=== PATIENT | female | born 1965 | race Caucasian/White ===

== ENCOUNTER 2020-03-09 18:56 | Observation (INO) | payer BC ==
[~2020-03-09] VITALS: Ht 157.5 cm; Wt 70.0 kg
[2020-03-09] MEDS ORDERED: ONDANSETRON 2MG/ML, 2ML ONE (19:47)
[2020-03-09] MEDS ORDERED: MORPHINE SULFATE 4 MG/ML, 1ML ONE ×2 (19:48→20:40)
[2020-03-09] MEDS ORDERED: CEFOTETAN PMX 1GM/50ML 50 ML IVPB ONE (20:00)
[2020-03-09] MEDS ORDERED: ONDANSETRON 2MG/ML, 2ML IVPush ONE (20:00)
[2020-03-09] MEDS ORDERED: SODIUM CHLORIDE FLUSH 10ML SYR IVF ONE (20:00)
[2020-03-09] MEDS: MORPHINE SULFATE 4 MG/ML, 1ML IVPush PRN ×2 (20:06→20:42)
[2020-03-09 20:26] LABS: BASOPHILS % (AUTO) 0 % (0-1); EOSINOPHILS % (AUTO) 0 % (1-7); LYMPHOCYTES % (AUTO) 16 % (22-44); MEAN CORPUSCULAR HGB CONC 33.6 g/dL (32.4-35.8); MEAN PLATELET VOLUME 8.3 fL (7.4-10.4); MONOCYTES % (AUTO) 6 % (2-9); NEUTROPHILS % (AUTO) 77 % (42-75); PLATELET COUNT 160 x10^3/uL (130-400); RED BLOOD COUNT 4.23 x10^6/uL (3.82-5.3); RED CELL DISTRIBUTION WIDTH 12.5 % (9.6-15.2)
[2020-03-09 20:27] LABS: MD NO
[2020-03-09] MEDS ORDERED: SODIUM CHLORIDE 0.9% 1,000 ML IV ONE (20:30)
[2020-03-09] MEDS ORDERED: SODIUM CHLORIDE FLUSH 10ML SYR IVF PRN (20:30)
[2020-03-09] MEDS ORDERED: MORPHINE SULFATE 4 MG/ML, 1ML IVPush PRN (20:30)
[2020-03-09] MEDS ORDERED: ONDANSETRON 2MG/ML, 2ML IVPush PRN ×2 (20:30→23:00)
[2020-03-09 20:34] LABS: ANION GAP 4 mmol/L (5-15); CALCIUM 8.1 mg/dL (8.5-10.1); CHLORIDE 109 mmol/L (98-107); CREATININE 0.74 mg/dL (0.55-1.02)
[2020-03-09 20:35] LABS: ALBUMIN 3.5 g/dL (3.4-5.0)
[2020-03-09] MEDS ORDERED: PLEASE ENTER ALLERGIES MC SCH (21:00)
[2020-03-10] MEDS: SODIUM CHLORIDE 0.9% 1,000 ML IV SCH ×4 (00:56→22:37)
[2020-03-10] MEDS: MORPHINE SULFATE 4 MG/ML, 1ML IVPush PRN ×2 (01:10→10:38)
[2020-03-10 02:56] VITALS: BP 95/50
[2020-03-10 06:51] VITALS: BP 101/60
[2020-03-10] MEDS: CEFOTETAN PMX 1GM/50ML 50 ML IV SCH ×2 (08:33→20:43)
[2020-03-10] MEDS ORDERED: EPINEPHRINE 1 MG/ML, 1ML ONE (11:56)
[2020-03-10] MEDS ORDERED: BUPIVACAINE/PF 0.5% ONE (11:56)
[2020-03-10] MEDS ORDERED: CHLORHEXIDINE 15 ML UDC ONE (12:35)
[2020-03-10] MEDS ORDERED: CHLORHEXIDINE 15 ML UDC MM ONE (13:00)
[2020-03-10] MEDS ORDERED: FENTANYL PF 250 MCG/5ML ONE (13:17)
[2020-03-10] MEDS ORDERED: MIDAZOLAM 1 MG/ML, 2ML ONE (13:17)
[2020-03-10] MEDS ORDERED: HALOPERIDOL 5 MG/ML IV PRN (13:30)
[2020-03-10] MEDS ORDERED: ACETAMINOPHEN 325 MG TABLET PO PRN (13:30)
[2020-03-10] MEDS ORDERED: morphine SULFATE 10 MG/ML, 1ML IVPush PRN (13:30)
[2020-03-10] MEDS ORDERED: OXYcodone 5 MG/5 ML ORAL.SOL UDC PO PRN (13:30)
[2020-03-10] MEDS ORDERED: LABETALOL 5MG/ML, 20ML IV PRN (13:30)
[2020-03-10] MEDS ORDERED: HYDROmorphone 1 MG/ML, 1ML INJ IVPush PRN (13:30)
[2020-03-10] MEDS ORDERED: FENTANYL PF 100 MCG/2ML IV PRN (13:30)
[2020-03-10] MEDS ORDERED: hydrALAzine 20 MG/ML, 1ML IV PRN (13:30)
[2020-03-10] MEDS ORDERED: MEPERIDINE/PF 25MG/0.5ML IVPush PRN (13:30)
[2020-03-10] MEDS ORDERED: PROMETHAZINE 25 MG/ML, 1ML IVPush PRN (13:30)
[2020-03-10] MEDS ORDERED: DEXAMETHASONE 4 MG/ML, 1ML ONE (14:20)
[2020-03-10] MEDS ORDERED: NEOSTIGMINE 1 MG/ML, 10ML ONE (14:20)
[2020-03-10] MEDS ORDERED: CEFAZOLIN 1,000 MG ONE (14:20)
[2020-03-10] MEDS ORDERED: ONDANSETRON 2MG/ML, 2ML ONE (14:20)
[2020-03-10] MEDS ORDERED: ROCURONIUM 10MG/ML,5ML ONE (14:20)
[2020-03-10] MEDS ORDERED: GLYCOPYRROLATE 0.2MG/1ML, 5ML ONE (14:20)
[2020-03-10] MEDS ORDERED: PROPOFOL 10 MG/ML, 20ML ONE (14:20)
[2020-03-10] MEDS ORDERED: SUCCINYLCHOLINE 20 MG/ML, 10ML ONE (14:20)
[2020-03-10] MEDS ORDERED: HYDROcodone/APAP 5/325 TABLET PO PRN (14:30)
[2020-03-10] MEDS ORDERED: KETOROLAC 30 MG/1 ML ONE (14:35)
[2020-03-10] MEDS ORDERED: OXYcodone 5 MG/5 ML ORAL.SOL UDC ONE (14:35)
[2020-03-10] MEDS ORDERED: FENTANYL PF 100 MCG/2ML ONE (14:35)
[2020-03-10] MEDS ORDERED: MORPHINE SULFATE 4 MG/ML, 1ML ONE (14:51)
[2020-03-10] MEDS ORDERED: KETOROLAC 30 MG/1 ML IVPush ONE (15:00)
[2020-03-10 20:23] VITALS: BP 97/59
[2020-03-10 23:49] VITALS: BP 99/67
[2020-03-11 04:14] VITALS: BP 114/79
[2020-03-11 05:07] LABS: BASOPHILS % (AUTO) 0 % (0-1); EOSINOPHILS % (AUTO) 0 % (1-7); LYMPHOCYTES % (AUTO) 7 % (22-44); MEAN CORPUSCULAR HEMOGLOBIN 30.1 pg (27.0-34.8); MEAN CORPUSCULAR HGB CONC 33.1 g/dL (32.4-35.8); MEAN PLATELET VOLUME 9.1 fL (7.4-10.4); MONOCYTES % (AUTO) 5 % (2-9); NEUTROPHILS % (AUTO) 88 % (42-75); PLATELET COUNT 126 x10^3/uL (130-400); RED BLOOD COUNT 4.04 x10^6/uL (3.82-5.3); RED CELL DISTRIBUTION WIDTH 12.4 % (9.6-15.2)
[2020-03-11 05:11] LABS: MD NO
[2020-03-11 05:19] LABS: CHLORIDE 108 mmol/L (98-107)
[2020-03-11 05:27] LABS: ANION GAP 6 mmol/L (5-15); CALCIUM 8.6 mg/dL (8.5-10.1); CREATININE 0.68 mg/dL (0.55-1.02)
[2020-03-11 06:32] VITALS: BP 100/67
[2020-03-11] MEDS: SODIUM CHLORIDE 0.9% 1,000 ML IV SCH ×2 (06:46→07:49)
[2020-03-11] MEDS: CEFOTETAN PMX 1GM/50ML 50 ML IV SCH (08:57)
[2020-03-11] MEDS ORDERED: HYDR-3240 PO (09:25)
[2020-03-11] MEDS ORDERED: ONDA4TAB7 PO (09:26)
[2020-03-11] MEDS ORDERED: AMOX1TAB64 PO (09:26)
[2020-03-11 11:09] VITALS: BP 92/52
== END 2020-03-11 12:00 | disposition home or self-care (01) ==
LOC: ED 20:43 → 4NE 21:30 → ED 22:50 → 4NE 22:53 → INTOOBSV 22:53 → DCLOUNGE 03-11 11:44
PROVIDERS: ADMIT Surgery; ATTEND Surgery
DX: K35.31 Acute appendicitis with localized peritonitis and gangrene, without perforation (principal); Z20.828 Contact with and (suspected) exposure to other viral communicable diseases; K38.1 Appendicular concretions; Z98.82 Breast implant status; Z79.899 Other long term (current) drug therapy
CPT/HCPCS: 36415; 44970; 80048; 82040; 84703; 85025; 87635; 88304; 96361; 96365; 96366; 96375; 96376; 99284; G0378; J0171; J0330; J0690; J1100; J1885; J2250; J2270; J2405; J2704; J2710; J3010; J7030; S0020

== ENCOUNTER → 2020-03-09 | Outpatient (CLI) | payer BC ==
[~2020-03-09] MED LIST: OMNIPAQUE 350 MG/ML, 100ML BOTTLE ONE
== END | disposition home or self-care (01) ==
LOC: RAD 15:47
PROVIDERS: ATTEND Family Medicine
DX: K36 Other appendicitis (principal); K35.80 Unspecified acute appendicitis; K38.1 Appendicular concretions
CPT/HCPCS: 74177; Q9967